=== PATIENT | female | born 1965 | race Caucasian/White ===

== ENCOUNTER → 2024-05-28 | Day surgery (SDC) | payer OTHER ==
[~2024-05-28] VITALS: Ht 162.6 cm; Wt 90.9 kg
[~2024-05-28] MED LIST: ALBU18HF12 IH; DESV50TA35 PO; HYDR5TAB8 PO; LEVO175T9 PO; LIDOCAINE/PF 2% 5 ML VIAL IM ONE; MIDAZOLAM HCL 2 MG/2 ML VIAL IVP ONE; OLAN10TA74 PO; OMEP40CA21 PO; OXYC-618 PO; OXYGEN THERAPY IH SCH; PLEC3TAB2 PO; PROPOFOL 1% 20 ML VIAL IVP ONE; QUET100T34 PO; QUET200T PO; SODIUM CHLORIDE 0.9% 1,000 ML ONE; TIZA-211 PO
[2024-05-28] MEDS: SODIUM CHLORIDE 0.9% 1,000 ML IV ONE (07:12)
== END | disposition still patient (30) ==
LOC: SURGERY 06:32
PROVIDERS: ATTEND Specialist
DX: Z12.11 Encounter for screening for malignant neoplasm of colon (principal); E03.9 Hypothyroidism, unspecified; G62.9 Polyneuropathy, unspecified; E27.1 Primary adrenocortical insufficiency; K90.9 Intestinal malabsorption, unspecified; Z90.49 Acquired absence of other specified parts of digestive tract; Z86.2 Personal history of diseases of the blood and blood-forming organs and certain disorders involving the immune mechanism; Z98.890 Other specified postprocedural states; Z87.01 Personal history of pneumonia (recurrent); Z98.84 Bariatric surgery status
CPT/HCPCS: 45378; J2704; J3490; J2250; J7030

== ENCOUNTER 2024-10-01 08:22 | Day surgery (SDC) | payer OTHER ==
[~2024-10-01] VITALS: Ht 162.6 cm; Wt 90.9 kg
[~2024-10-01 08:22] MED LIST changes: -LIDOCAINE/PF 2% 5 ML VIAL IM ONE; -MIDAZOLAM HCL 2 MG/2 ML VIAL IVP ONE; -OXYGEN THERAPY IH SCH; -PROPOFOL 1% 20 ML VIAL IVP ONE
[2024-10-01] MEDS: SODIUM CHLORIDE 0.9% 1,000 ML IV ONE (08:52)
[2024-10-01] MEDS ORDERED: PROPOFOL 1% 20 ML VIAL IVP ONE (12:00)
[2024-10-01] MEDS ORDERED: OXYGEN THERAPY IH SCH (20:00)
== END 2024-10-01 10:50 | disposition home or self-care (01) ==
LOC: SURGERY 08:22
PROVIDERS: ATTEND Specialist
DX: R13.19 Other dysphagia (principal); Z98.84 Bariatric surgery status; K59.09 Other constipation; G62.9 Polyneuropathy, unspecified; F31.9 Bipolar disorder, unspecified; G47.30 Sleep apnea, unspecified; Z90.49 Acquired absence of other specified parts of digestive tract; Z98.890 Other specified postprocedural states; Z87.891 Personal history of nicotine dependence; Z79.899 Other long term (current) drug therapy; Z88.8 Allergy status to other drugs, medicaments and biological substances
CPT/HCPCS: 43239; 88305; C1769; J2704; J7030